=== PATIENT | female | born 1990 | race Caucasian/White ===

== ENCOUNTER 2018-01-11 15:54 | Emergency (ER) | payer BC ==
[~2018-01-11] VITALS: Ht 157.5 cm; Wt 2.3 kg
[2018-01-11 16:00] VITALS: BP 133/70
[2018-01-11 16:15] VITALS: BP 133/70
--- NOTE | 2018-01-11 16:23 | Emergency Room Report ---
History of Present Illness General Chief Complaint: General Complaint Source: Patient, Family Member Present Illness HPI Patient presents emergency department today with shaking and possible seizures. 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 Apparently 3 days ago patient began to develop acute onset of shaking in her legs and arms. Patient was actually admitted to [facility] emergency department. Patient had a CT scan laboratory workup which were negative. Patient then left to go be admitted at [facility] because she did not want to be admitted at [facility] because that is where she works. Patient was seeing at [facility] emergency department and subsequently discharged. Patient then obtaining outpatient MRI at [facility] where she was told that everything was normal. She was discharged home and then today subsequently had shaking that developed into full -body again. Patient took Ativan orally 0.5 mg 911 was contacted patient's shaking stopped and patient was transported here for further evaluation. Patient's family is here and is now requesting that the be able to take the patient and transport the patient to another hospital of their choosing. Patient's family states that they have friends at [facility] they do not want to be transferred instead they want to go through the emergency department themselves and left the hospital AGAINST MEDICAL ADVICE. No further complaints are noted. Patient denies any fever chest pain shortness breath she does have a mild headache. Symptoms noted to be severe.No other modifying factors. No other associated signs and symptoms. No other complaints were noted. Allergies: Coded Allergies: No Known Allergies (Unverified , 01/11/18) Patient History Past Medical History: psych hx - bipolar Past Surgical History: none Pertinent Family History: none Social History: Denies: smoking, alcohol use, drug use Now: No Reviewed Nursing Documentation: PMH: Agreed; PSxH: Agreed Nursing Documentation-PMH Past Medical History: No History, Except For Review of Systems All Other Systems: negative except mentioned in HPI Physical Exam Vital Signs Date Time Temp Pulse Resp B/P (MAP) Pulse Ox O2 Delivery O2 Flow Rate FiO2 01/11/18 15:48 99.3 120 20 133/70 98 Room Air 99.3 Sp02 EP Interpretation: reviewed, normal General Appearance: alert, mild distress - Appears weak Head: normocephalic, atraumatic Eyes: bilateral eye normal inspection ENT: normal ENT inspection, hearing grossly normal, normal voice Neck: normal inspection, full range of motion, supple Respiratory: normal inspection, lungs clear, normal breath sounds, no respiratory distress, no retraction, no wheezing Cardiovascular #1: regular rate, rhythm, no edema Gastrointestinal: normal inspection, normal bowel sounds, non tender, soft, no guarding, no hernia Genitourinary: no CVA tenderness Musculoskeletal: normal inspection, back normal, normal range of motion Neurologic: normal inspection, alert, responsive, speech normal Psychiatric: no delusions, depressed affect Skin: normal inspection, normal color, no rash Medical Decision Making Diagnostic Impression: Primary Impression: Shaking Additional Impression: Episode of shaking ER Course Patient presents emergency department today with shaking which be consistent with seizures. Differential considerations include seizures, stress reaction, migraine, infectious process just to name a few. Given patient's presentation I felt the patient required extensive workup and admission to the hospital. Patient's family however declined to have the patient to be admitted they will leave the hospital AGAINST MEDICAL ADVICE and said go to another facility that they're more comfortable with. Family informed me they were planning to go to [facility]. I advised that they are free to return here to be seen that she change her mind. Patient left the hospital against medical advise. Last Vital Signs Date Time Temp Pulse Resp B/P (MAP) Pulse Ox O2 Delivery O2 Flow Rate FiO2 01/11/18 15:48 99.3 120 20 133/70 98 Room Air 99.3 Status: unchanged Disposition: AGAINST MEDICAL ADVICE Condition: Serious Trung Jackson MD Jan 11, 2018 16:23
== END 2018-01-11 16:14 | disposition left against medical advice (07) ==
LOC: EDBD 15:54 → EMR 16:14
DX: R25.1 Tremor, unspecified (principal); F31.9 Bipolar disorder, unspecified
CPT/HCPCS: 99283